=== PATIENT | male | born 1950 | race Caucasian/White ===

== ENCOUNTER 2017-01-07 15:53 | Inpatient (IN) | payer OTHER ==
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
--- NOTE | 2017-01-07 16:01 | CPEKG ---
Heart Rate: 65 RR Interval: 923 P-R Interval: 180 QRSD Interval: 96 QT Interval: 428 QTC Interval: 445 P [place]: 67 QRS [place]: -9 T Wave [place]: 41 EKG Severity - OTHERWISE NORMAL ECG - EKG Impression: SINUS ARRHYTHMIA, RATE 61-70 Electronically Signed By: David Quigley 07-Jan-2017 22:18:22
[2017-01-07] MEDS ORDERED: ASPIRIN 81 MG CHEWABLE TAB PO ONE (16:05)
[2017-01-07] MEDS ORDERED: NS 1,000 ML IV ONE (16:05)
[2017-01-07 16:26] LABS: ANION GAP 12 mEq/L (8-16); CALCIUM 9.6 mg/dL (8.5-10.4); CARBON DIOXIDE 24 mEq/l (22-31); CHLORIDE 104 mEq/L (97-110); CREATININE 0.8 mg/dL (0.7-1.3); GLOMERULAR FILTRATION RATE > 60; GLUCOSE 74 mg/dL (70-100); MAGNESIUM 2.3 mg/dL (1.6-2.3); POTASSIUM 4.1 mEq/L (3.5-5.2); SODIUM 140 mEq/L (134-144)
[2017-01-07 16:34] LABS: % IMMATURE GRANULYOCYTES 0.4 % (0.0-1.1); ABSOLUTE IMMATURE GRANULOCYTES 0.02 10^3/uL (0.00-0.10); ADD DIFF? NO; ADD MORPH? NO; ADD SCAN? NO; ATYPICAL LYMPHOCYTE FLAG 10 (0-99); FRAGMENT RBC FLAG 0 (0-99); HEMOGLOBIN 15.1 g/dL (13.7-17.5); LEFT SHIFT FLG 0 (0-99); LIPEMIA HEMOLYSIS FLAG 90 (0-99); MEAN CELL HEMOGLOBIN 31.2 pg (27.9-34.1); MEAN CELL HEMOGLOBIN CONCENTR. 34.3 g/dL (32.4-36.7); MEAN CELL VOLUME 90.9 fL (81.5-99.8); MEAN PLATELET VOLUME 9.5 fL (8.7-11.7); PLATELET CLUMPS FLAG 40 (0-99); PLATELET COUNT 310 10^3/uL (150-400); RED BLOOD CELL COUNT 4.84 10^6/uL (4.40-6.38); RED CELL DISTRIBUTION WIDTH 12.5 % (11.5-15.2)
[2017-01-07 16:36] LABS: TROPONIN I < 0.012 ng/mL (0-0.034)
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
[2017-01-07] MEDS ORDERED: ONDANSETRON DISINTEGRATING 4 MG TAB PO PRN (21:03)
[2017-01-07] MEDS ORDERED: ONDANSETRON 4 MG/2 ML VIAL IVP PRN (21:03)
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
[2017-01-07] MEDS: MAGNESIUM OXIDE 400 MG TAB PO SCH (22:54)
[2017-01-08] MEDS: LEVOTHYROXINE 75 MCG TAB PO SCH (06:03)
[2017-01-08] MEDS ORDERED: FAMOTIDINE 20 MG TAB ONE (10:39)
[2017-01-08] MEDS ORDERED: ASPIRIN EC 325 MG TAB PO ONE (10:39)
[2017-01-08] MEDS ORDERED: diphenhydrAMINE 25 MG CAP PO ONE ×2 (10:39→12:35)
[2017-01-08] MEDS ORDERED: DIAZEPAM 5 MG TAB ONE (10:39)
[2017-01-08] MEDS: ASPIRIN 325 MG TAB PO SCH (10:55)
[2017-01-08] MEDS ORDERED: LIDOCAINE 1% 30 ML SDV ONE ×2 (11:27→12:48)
[2017-01-08] MEDS ORDERED: MIDAZOLAM 2 MG/2 ML VIAL ONE ×3 (11:28→12:44)
[2017-01-08] MEDS ORDERED: fentaNYL 100 MCG/2 ML INJ ONE ×2 (11:28→12:44)
--- NOTE | 2017-01-08 11:31 | ECHO ---
[id number] + + [phone] : : [place] [address] : : [phone] + Adult Echocardiographic Report + -----+ :Name: PIERO MENDIOLA VStudy Date: 01/07/2017 04:27 PM BP: 131/76 mmHg : : Hospital Admission Number: [id number] Gaby n: ER: :: 1950 Gender: Male Height: 66 in : :Age: 66 yrs Race: WH Weight: 170 lb : : : : BSA: 1.9 meters 2 : :History: Chest Pain : + -----+ MMode/2D Measurements \T\ Calculations IVSd: 1.1 cm RVDd: 3.1 cm FS: 31.9 % Ao root diam: LVPWd: 1.1 cm LVIDd: 3.6 cm EDV(Teich): 3.3 cm LVIDs: 2.5 cm 54.8 ml LA dimension: ESV(Teich): 3.3 cm 21.4 ml EF(Teich): 60.9 % LVLd ap4: 9.9 cm SV(MOD-sp4): EDV(MOD-sp4): 104.0 ml 134.0 ml LVLs ap4: 7.6 cm ESV(MOD-sp4): 30.0 ml EF(MOD-sp4): 77.6 % Normal Measurement Values: + + :LVIDd (3.5-5.7cm) IVSd (0.6-1.1cm) LVPWd (0.6-1.1cm) Aortic Root (2.0-3.7cm)Left Atrium (1.5-4.0cm): :LV Vol(d) (76-115ml) LV Vol(s) (29-48ml) Ejec Fraction (50-65%)PV Martin (0.6- 1.2m/s) TV Martin (0.4-1.0m/s) : :MV E Martin (0.8-1.0m/s)MV A Martin (0.3-1.0m/s)LVOT Martin (0.7-1.2m/s) Asc Ao Martin ( 0.9-1.8m/s) : + + Doppler Measurements \T\ Calculations MV E max martin: Ao V2 max: LV V1 max: PA V2 max: 70.6 cm/sec 126.0 cm/sec 101.0 cm/sec 99.1 cm/sec MV A max martin: Ao max P.4 mmHgLV V1 max PG: PA max P.3 cm/sec 4.1 mmHg 3.9 mmHg MV E/A: 1.3 MV dec time: 0.22 sec RAP systole: 10.0 mmHg Left Ventricle The left ventricle is normal in size and function. There is normal left ventricular wall thickness. Ejection Fraction = 65-70%. No regional wall motion abnormalities noted. Right Ventricle The right ventricle is normal in size and function. The right ventricular systolic function is normal. Atria The left atrial size is normal. Right atrial size is normal. A dilated inferior vena cava suggests increased right atrial pressure. Mitral Valve The mitral valve is normal in structure and function. There is trace to mild mitral regurgitation. Tricuspid Valve The tricuspid valve is normal in structure and function. There is trace tricuspid regurgitation. Aortic Valve The aortic valve is trileaflet. There is no aortic stenosis. There is no aortic insufficiency. Pulmonic Valve The pulmonic valve is not well visualized. There is no pulmonic valvular regurgitation. Great Vessels The aortic root is normal size. Pericardium/Pleural There is no pericardial effusion. Conclusion A two-dimensional transthoracic echocardiogram with M-mode and Doppler was performed. (1) Left ventricular systolic ejection fraction was normal (>70%) - normal wall motion (2) No left ventricular hypertrophy (3) No diastolic dysfunction (4) Normal right ventricular size and function (5) Normal atrial dimensions (6) Trace/mild mitral regurgitation (7) Trileaflet aortic valve without sclerosis or insufficiency (8) Trace tricuspid regurgitation (9) Poor visualization of the pulmonic valve (10) No comparison echocardiograms Final Reading Physician: James Cook signed on 01/08/2017 11:30 AM Ordering Physician: David Quigley Performed By: Alice Solares
[2017-01-08] MEDS ORDERED: CEFAZOLIN 1 GM/DEXTROSE/50 ML BAG IV ONE ×2 (12:27→12:31)
[2017-01-08] MEDS ORDERED: BACITRACIN IRRIGATION/NS 50,000 UNITS/1,000 ML BTL IRR ONE (12:35)
[2017-01-08] MEDS ORDERED: DIAZEPAM 5 MG TAB PO ONE (12:35)
[2017-01-08] MEDS ORDERED: IOPAMIDOL (ISOVUE 370) 100 ML BTL IV ONE (12:35)
[2017-01-08] MEDS ORDERED: NS 1,000 ML IV SCH (12:45)
[2017-01-08] MEDS ORDERED: BUPIVACAINE 0.5% 30 ML SDV ONE (12:48)
[2017-01-08] MEDS ORDERED: LIDO/EPI 1% **for epidural** 30 ML SDV ONE (12:48)
[2017-01-08] MEDS ORDERED: ceFAZolin 2 GM/DEXTROSE 100 ML IV ONE (12:54)
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
--- NOTE | 2017-01-08 14:26 | PDDXCAT ---
Diagnostic Cath Note - . Date: 01/08/17 Piece Maker: Stanley Indication: other (syncope with history of CAD) - Procedure Access: right groin Procedure: left heart catheterization, coronary angiography, left ventriculogram - Materials Left Heart Cath size: 6F Left Heart Cath materials: standard multipack (JL4, JR4, pigtail) - Findings-Left Heart Catheterization LM: short, bifurcation into the LAD and LCX. No CAD noted. LAD: Medium sized vessel with two principal diagonals noted. No luminal irregularities appreciated. Minor tortuosity to the mid/distal vessel LCX: medium to large vessel with two principal obtuse marginals noted. no luminal irregularities appreciated. RCA: dominant vessel. large caliber. no luminal irregularities appreciated. EDP: 13 mm Hg LVEF: 65% Wall motion: normal wall motion Complications: none Estimated blood loss: <50ml Closure method: Angioseal Assessment: 66 y/o male with history of CAD by EBCT, but no appreciable CAD noted on angiogram. Large vessels without luminal irregularities noted. Plan: Would proceed with PPM placement with lack of ischaemic etiology for the event noted. Intervention: none Patient Problems: Problems Problem Status Onset Cardiac dysrhythmia Acute
--- NOTE | 2017-01-08 14:39 | CPEKG ---
Heart Rate: 60 RR Interval: 1000 P-R Interval: 176 QRSD Interval: 92 QT Interval: 432 QTC Interval: 432 QRS [place]: -15 T Wave [place]: 24 EKG Severity - ABNORMAL ECG - EKG Impression: ATRIAL-PACED RHYTHM EKG Impression: BORDERLINE LEFT AXIS DEVIATION Electronically Signed By: Андрей Kaba 08-Jan-2017 18:13:00
--- NOTE | 2017-01-08 14:54 | SUROPNOTE ---
[facility] Operative Report - Surgery PROCEDURE: (1) subclavian venogram (2) PPM implantation INDICATION: (1) Syncope (two episodes, one witnessed and the second recorded with EMS telemetry) PROCEDURE DETAILS: Risks and benefits of the procedure were discussed with patient and . Patient was taken to the cardiac laboratory aide and had angiography performed first - to ensure no critical CAD noted. After absence of CAD, the patient was reprepped and draped for the PPM implant. Venogram was performed to isolate the subclavian vein. Lidocaine was used for local anesthetic. Two separate sticks were performed with wires left for access. A pocket was then created with #12 blade and bovie (for depth and haemostasis). Blunt dissection create the pocket both superiorly and inferiorly to the incision. Raytech soaked in Bacitracin was placed in the pocket, and the wires were pulled in. Ventricular lead was placed first SN: [id number] M# [id number] Test results with capture at 0.5V@0.5ms, 0.6 mA, sensing 15.2 mV, 4.7 V/s, and impedance of 752 ohms The lead was sutured into position Atrial lead was placed second SN: [id number] M# [id number] Test results with capture at 0.6V@0.5ms, !.1 mA, sensing 2.3 mV, 0.7 V/s, and impedance of 465 ohms The lead was sutured into position The raytech was explanted and the pocket was inspected for haemostasis. The leads were attached to the generator and the generator was sutured into the pocket after extensive flushing of Bacitracin. Generator: SN: [id number] M#: [id number] No complications were noted Patient tolerated the procedure well Post procedure CXR pending as well as follow up interrogation and CXR in the morning.
--- NOTE | 2017-01-08 15:51 | HOSPPROG ---
Hospitalist Progress Note Assessment/Plan: # bradycardia/syncope/ppm placement - CXR tomorrow # hypothyroid - synthroid # FCFT # SCDs ## chart reviewed discussed with Dr Angel echo reviewed Subjective: cath without CAD, ppm placed; no complications Objective: Vital Signs Temp Pulse Resp BP Pulse Ox 36.8 C 67 20 119/83 H 96 01/08/17 07:30 01/08/17 07:30 01/08/17 15:25 01/08/17 15:16 01/08/17 15:25 01/07/17 01/08/17 01/09/17 05:59 05:59 05:59 Intake Total 400 Balance 400 - Physical Exam Constitutional: no apparent distress, appears nourished Cardiovascular: regular rate and rhythym, no murmur, rub, or gallop Respiratory: no respiratory distress, no rales or rhonchi, clear to auscultation Gastrointestinal: normoactive bowel sounds, soft, non-tender abdomen, no palpable masses ICD10 Worksheet Patient Problems: Problems Problem Status Onset Cardiac dysrhythmia Acute
[2017-01-08] MEDS: ACETAMINOPHEN 325 MG TAB PO PRN ×2 (18:11→22:08)
[2017-01-08] MEDS: MAGNESIUM OXIDE 400 MG TAB PO SCH (21:16)
[2017-01-09 01:21] LABS: TROPONIN I 0.057 ng/mL (0-0.034)
[2017-01-09] MEDS: LEVOTHYROXINE 75 MCG TAB PO SCH (04:26)
[2017-01-09] MEDS: ACETAMINOPHEN 325 MG TAB PO PRN ×2 (04:26→08:41)
[2017-01-09 05:04] LABS: % IMMATURE GRANULYOCYTES 0.4 % (0.0-1.1); ABSOLUTE IMMATURE GRANULOCYTES 0.02 10^3/uL (0.00-0.10); ADD DIFF? NO; ADD MORPH? NO; ADD SCAN? NO; ATYPICAL LYMPHOCYTE FLAG 0 (0-99); FRAGMENT RBC FLAG 0 (0-99); HEMATOCRIT 40.1 % (40.0-51.0); HEMOGLOBIN 13.6 g/dL (13.7-17.5); LEFT SHIFT FLG 0 (0-99); LIPEMIA HEMOLYSIS FLAG 90 (0-99); MEAN CELL HEMOGLOBIN 31.6 pg (27.9-34.1); MEAN CELL HEMOGLOBIN CONCENTR. 33.9 g/dL (32.4-36.7); MEAN PLATELET VOLUME 9.2 fL (8.7-11.7); PLATELET CLUMPS FLAG 10 (0-99); PLATELET COUNT 213 10^3/uL (150-400); RED BLOOD CELL COUNT 4.31 10^6/uL (4.40-6.38); RED CELL DISTRIBUTION WIDTH 12.6 % (11.5-15.2)
[2017-01-09 05:27] VITALS: PULSE 69; O2SAT 95
[2017-01-09 05:33] LABS: ANION GAP 9 mEq/L (8-16); CALCIUM 8.8 mg/dL (8.5-10.4); CARBON DIOXIDE 22 mEq/l (22-31); CHLORIDE 107 mEq/L (97-110); CREATININE 0.8 mg/dL (0.7-1.3); GLOMERULAR FILTRATION RATE > 60; GLUCOSE 69 mg/dL (70-100); POTASSIUM 4.3 mEq/L (3.5-5.2); SODIUM 138 mEq/L (134-144)
[2017-01-09 07:38] VITALS: BP 131/84; RESP 22; TEMP 98.1
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
[2017-01-09] MEDS: ASPIRIN 325 MG TAB PO SCH (08:41)
--- NOTE | 2017-01-09 09:13 | CPEKG ---
Heart Rate: 65 RR Interval: 923 P-R Interval: 168 QRSD Interval: 90 QT Interval: 388 QTC Interval: 404 P Prescott: 58 QRS Prescott: -16 T Wave Prescott: 39 EKG Severity - OTHERWISE NORMAL ECG - EKG Impression: SINUS RHYTHM EKG Impression: BORDERLINE LEFT AXIS DEVIATION Electronically Signed By: Андрей Kaba 09-Jan-2017 14:20:25
--- NOTE | 2017-01-09 10:39 | GDS ---
[f rep st] DISCHARGE SUMMARY DIAGNOSES: 1. Syncope. 2. Sinus bradycardia. 3. Hypothyroid. 4. History of coronary artery disease by EBCT. HOSPITAL COURSE: A 66-year-old man presented with syncope. He was found to be markedly bradycardic down in the 20s by EMS. Because of this, he underwent a coronary angiogram, which was negative for any coronary artery disease. He subsequently underwent pacemaker placement. There were no complic ations from this as evidenced by his clinical exam as well as chest x-ray. Recommend that he should continue aspirin given his history of coronary artery disease. Should follow up with his PCP to co nsider statin based on his lipid profile. FOLLOWUP: 1. Dr. Angel in 1 week or someone else at [facility]. 2. Primary care physician tomorrow. BILLING: I spent less than 30 minutes on the day of discharge coordinating care. /[id number]/MODL
== END 2017-01-09 11:35 | disposition home or self-care (01) | DRG 244 ==
LOC: EDUNIT# → OBSVTOIN 16:22 → F2W 18:30
PROVIDERS: ADMIT Internal Medicine; ATTEND Internal Medicine
PROC: 02HK3JZ Insertion of Pacemaker Lead into Right Ventricle, Percutaneous Approach (ICD-10-PCS; principal; 2017-01-08)
PROC: 0JH606Z Insertion of Pacemaker, Dual Chamber into Chest Subcutaneous Tissue and Fascia, Open Approach (ICD-10-PCS; principal; 2017-01-08)
PROC: 02H63JZ Insertion of Pacemaker Lead into Right Atrium, Percutaneous Approach (ICD-10-PCS; principal; 2017-01-08)
PROC: B2111ZZ Fluoroscopy of Multiple Coronary Arteries using Low Osmolar Contrast (ICD-10-PCS; 2017-01-08)
PROC: B2151ZZ Fluoroscopy of Left Heart using Low Osmolar Contrast (ICD-10-PCS; 2017-01-08)
PROC: 4A023N7 Measurement of Cardiac Sampling and Pressure, Left Heart, Percutaneous Approach (ICD-10-PCS; 2017-01-08)
DX: R00.1 Bradycardia, unspecified (principal); I49.3 Ventricular premature depolarization; R55 Syncope and collapse; E03.9 Hypothyroidism, unspecified; G47.30 Sleep apnea, unspecified
CPT/HCPCS: C1760; C1785; C1898; J0690; J1644; J2250; J3010; Q9967